=== PATIENT | female | born 1935 | race Two or more races ===

== ENCOUNTER → 2022-11-18 | Outpatient (CLI) | payer OTHER ==
[~2022-11-18] MED LIST: CELEBREX 200MG; VOLTAREN GEL
== END | disposition home or self-care (01) ==
LOC: SONOGRAMA 10:10
DX: M25.511 Pain in right shoulder (principal); E07.9 Disorder of thyroid, unspecified

== ENCOUNTER 2022-11-22 09:28 | Outpatient (CLI) | payer OTHER | END 2022-11-22 09:33 | disposition home or self-care (01) | LOC: NUCLEAR 09:28 | DX: I73.9 Peripheral vascular disease, unspecified (principal) ==

== ENCOUNTER 2022-11-25 09:49 | Outpatient (CLI) | payer OTHER | END 2022-11-25 09:51 | disposition home or self-care (01) | LOC: NUCLEAR 09:49 | DX: I73.9 Peripheral vascular disease, unspecified (principal) ==

== ENCOUNTER 2023-01-30 23:23 | Emergency (ER) | payer OTHER ==
[~2023-01-30] VITALS: Ht 157.5 cm; Wt 62.6 kg
[2023-01-31] MEDS ORDERED: PEPCID40 MG PO (02:33)
== END 2023-01-31 02:42 ==
LOC: ER 23:23
DX: T54.91XA Toxic effect of unspecified corrosive substance, accidental (unintentional), initial encounter (principal); R10.9 Unspecified abdominal pain; Y92.018 Other place in single-family (private) house as the place of occurrence of the external cause; Z88.2 Allergy status to sulfonamides; Z88.0 Allergy status to penicillin

== ENCOUNTER 2023-08-20 09:49 | Outpatient (CLI) | payer OTHER ==
[~2023-08-20 09:49] MED LIST changes: +PEPCID40 MG PO
== END 2023-08-20 09:53 | disposition home or self-care (01) ==
LOC: RAD 09:49
PROVIDERS: ATTEND Internal Medicine Cardiovascular Disease
DX: M12.9 Arthropathy, unspecified (principal); M25.562 Pain in left knee; M25.561 Pain in right knee

== ENCOUNTER 2023-12-31 11:00 | Outpatient (CLI) | payer OTHER | END 2023-12-31 11:05 | disposition home or self-care (01) | LOC: RAD 11:00 | PROVIDERS: ATTEND Internal Medicine Cardiovascular Disease | DX: M11.9 Crystal arthropathy, unspecified (principal); M19.90 Unspecified osteoarthritis, unspecified site ==

== ENCOUNTER 2025-03-07 11:18 | Outpatient (CLI) | payer OTHER | END 2025-03-07 11:25 | disposition home or self-care (01) | LOC: RAD 11:18 | PROVIDERS: ATTEND Internal Medicine Cardiovascular Disease | DX: R10.9 Unspecified abdominal pain (principal); M46.47 Discitis, unspecified, lumbosacral region; M19.90 Unspecified osteoarthritis, unspecified site ==

== ENCOUNTER 2025-03-08 08:24 | Outpatient (CLI) | payer OTHER | END 2025-03-08 08:29 | disposition home or self-care (01) | LOC: SONOGRAMA 08:24 | PROVIDERS: ATTEND Internal Medicine Cardiovascular Disease | DX: R10.9 Unspecified abdominal pain (principal) ==

== ENCOUNTER 2025-08-01 16:35 | Emergency (ER) | payer OTHER ==
[~2025-08-01] VITALS: Ht 157.5 cm; Wt 60.8 kg
[2025-08-01] MEDS ORDERED: NORVASC5 MG PO (16:52)
[2025-08-01] MEDS ORDERED: AVALIDE 300-121 EACH PO (16:52)
[2025-08-01] MEDS ORDERED: GLIPIZIDE XL5 MG PO (16:52)
[2025-08-01] MEDS ORDERED: PLAVIX75 MG PO (16:52)
[2025-08-01] MEDS ORDERED: METFORMIN HCL500 M3 PO (16:52)
[2025-08-01] MEDS ORDERED: ACETAMINOPHEN 500 MG GEL..CAP PO ONE ×2 (19:45→19:58)
[2025-08-01 20:17] LABS: BASO % 0.7 % (0.1-1.2); EOS # 0.15 (0.04-0.54); EOS % 2.7 % (0.7-7.0); LYMPH # 2.03 (1.18-3.74); LYMPH % 36.1 % (19.3-53.1); MEAN PLATELET VOLUME 9.00 fl (9.4-12.4); MONO # 0.58 (0.24-0.82); MONO % 10.3 % (4.7-12.5); NEUT # 2.80 (1.56-6.13); NEUT % 49.8 % (34.0-71.1); RED CELL DISTRIBUTION WIDTH 13.0 % (11.6-14.4)
[2025-08-01 20:42] LABS: ALT/SGPT 21.0 U/L (12-78); AST/SGOT 27.0 U/L (15-37); BILIRUBIN TOTAL 0.28 mg/dL (0.3-1.2); BUN CREA RATIO 26.0 (7.0-25.0); CREATININE SERUM 0.94 mg/dL (0.55-1.02); GFR 56.2; GLOBULINA 4.1 G/DL (2.4-3.5); GLUCOSE FASTING 138.0 mg/dL (65-100); OSMOLALITY SERUM 289.0 MOSM/KG (275-295)
[2025-08-01] MEDS ORDERED: ORPHENADRINE CITRATE 30 MG/ML AMPUL IM ONE (22:30)
[2025-08-01] MEDS ORDERED: 8 HOUR650 MG PO (22:58)
[2025-08-01] MEDS ORDERED: NORFLEX100MG PO (22:58)
[2025-08-01] MEDS ORDERED: ORPHENADRINE CITRATE 30 MG/ML AMPUL ONE (23:19)
== END 2025-08-02 02:47 | disposition home or self-care (01) ==
LOC: ER 16:35
PROVIDERS: Preventive Medicine Public Health & General Preventive Medicine
DX: M54.50 Low back pain, unspecified (principal); M62.830 Muscle spasm of back; I10 Essential (primary) hypertension; E03.8 Other specified hypothyroidism; E11.9 Type 2 diabetes mellitus without complications; Z79.84 Long term (current) use of oral hypoglycemic drugs; Z88.1 Allergy status to other antibiotic agents
CPT/HCPCS: 36415; 96372; 99282; J2360